=== PATIENT | male | born 1975 | race Two or more races ===

== ENCOUNTER 2023-02-16 18:50 | Emergency (ER) | payer OTHER ==
[2023-02-16 18:55] VITALS: BP 142/96; PULSE 72; RESP 18; TEMP 97.7; BMI 30.1
[2023-02-16] MEDS ORDERED: KETOROLAC TROMETHAMINE 30 MG/1 ML VIAL IVPUSH ONE (19:36)
[2023-02-16] MEDS ORDERED: ONDANSETRON 4 MG/2 ML VIAL IVPUSH ONE (19:36)
[2023-02-16] MEDS ORDERED: ONDANSETRON 4 MG/2 ML VIAL ONE (19:51)
[2023-02-16] MEDS ORDERED: KETOROLAC TROMETHAMINE 30 MG/1 ML VIAL ONE (19:51)
[2023-02-16 20:35] LABS: BASO % 0.4 % (0-2.0); EOS % 0.1 % (0-4.5); HEMATOCRIT 44.9 % (35.4-49); LYMPH % 8.6 % (8-40); MCH 27.9 pg (25.7-33.7); MCHC 33.4 g/dl (32.0-35.9); MEAN CELL VOLUME 83.4 fl (80-96); MONO % 4.9 % (3.8-10.2); RBC 5.38 M/mm3 (4.00-5.60); RDW 13.7 % (11.9-15.9); WHITE BLOOD COUNT 17.7 K/mm3 (4.0-10.0)
[2023-02-16 20:45] LABS: INR 1.1 (0.83-1.09); PROTHROMBIN TIME (PATIENT) 12.7 SEC (9.7-13.0)
[2023-02-16 20:48] LABS: ACTIVATED PTT 35.5 SECONDS (25.2-36.5)
[2023-02-16 20:56] LABS: MEAN PLT VOLUME 10.2 fl (7.5-11.1); PLATELET COUNT 202 10^3/uL (134-434)
[2023-02-16 21:03] LABS: POTASSIUM 4.2 mmol/L (3.5-5.1)
[2023-02-16 21:05] LABS: ALBUMIN 4.2 g/dl (3.4-5.0); CALCIUM 9.7 mg/dL (8.5-10.1)
[2023-02-16 21:06] LABS: BLOOD UREA NITROGEN 20.2 mg/dL (7-18)
[2023-02-16 21:08] LABS: CREATININE 1.3 mg/dL (0.55-1.3)
[2023-02-16 21:10] LABS: BILIRUBIN,TOTAL 0.5 mg/dL (0.2-1); TOT PROT 8.3 g/dl (6.4-8.2)
[2023-02-16 21:21] LABS: EPI CELLS 5 /uL (0-25.1); HYALINE CASTS 3 /uL (0-3.1); PH,URINE 5.5 (5.0-8.0); URINE APPEARANCE CLEAR; URINE BACTERIA 1 /uL (0-1359); URINE BILIRUBIN NEGATIVE (NEGATIVE); URINE COLOR YELLOW; URINE GLUCOSE (UA) NEGATIVE (NEGATIVE); URINE KETONE NEGATIVE (NEGATIVE); URINE LEUK ESTERASE NEGATIVE (NEGATIVE); URINE NITRITE NEGATIVE (NEGATIVE); URINE PROTEIN NEGATIVE (NEGATIVE); URINE RBC 576 /uL (0-23.9); URINE UROBILINOGEN 0.2 mg/dL (0.2-1.0); URINE WBC 4 /uL (0-25.8)
== END 2023-02-16 23:43 | disposition home or self-care (01) ==
LOC: JER 18:50
PROC: 3E0333Z Introduction of Anti-inflammatory into Peripheral Vein, Percutaneous Approach (ICD-10-PCS; principal; 2023-02-16)
PROC: 3E033GC Introduction of Other Therapeutic Substance into Peripheral Vein, Percutaneous Approach (ICD-10-PCS; 2023-02-16)
DX: N20.0 Calculus of kidney (principal); R10.32 Left lower quadrant pain; R11.0 Nausea; R68.83 Chills (without fever); R30.9 Painful micturition, unspecified; Z20.822 Contact with and (suspected) exposure to COVID-19
CPT/HCPCS: 0241U-QW; 36415; 71046-TC-FY; 74176-TC; 80053; 81003; 83690; 85025; 85610; 85730; 87086; 99285-25